=== PATIENT | female | born 1940 | race African-American/Black ===

== ENCOUNTER 2024-10-16 23:22 | Emergency (ER) | payer MEDICARE ==
[~2024-10-16] VITALS: Ht 170.2 cm; Wt 53.4 kg
[~2024-10-16 23:22] MED LIST: CHOL100018 PO
[2024-10-16 23:32] VITALS: TEMP 98
[2024-10-16 23:49] LABS: PLATELET COUNT (AUTO) 331 K/uL (150-450); RED BLOOD CELL COUNT(AUTO) 4.67 MIL/uL (4.00-5.20); RED CELL DISTRIBUTION WIDTH 13.4 % (11.5-14.5); WHITE BLOOD COUNT (AUTO) 8.0 K/uL (4.5-11.0)
[2024-10-16 23:57] LABS: CALCIUM, TOTAL 9.7 mg/dL (8.8-10.5); CREATININE 1.30 mg/dL (0.60-1.30); GLOMERULAR FILTR. RATE CALC 47 mL/min (>60); GLUCOSE,RANDOM 132 mg/dL (70-110); SODIUM SERUM 135 mmol/L (136-145); UREA NITROGEN, BLOOD 36 mg/dL (7-18)
[2024-10-17 00:06] LABS: TROPONIN I-HIGH SENSITIVITY 19 ng/L (<51)
[2024-10-17 06:01] VITALS: BP 165/95; PULSE 81; RESP 16; O2SAT 95
== END 2024-10-17 06:01 | disposition home or self-care (01) ==
LOC: EMS 23:22
DX: R10.9 Unspecified abdominal pain (principal)
CPT/HCPCS: 80048; 83690; 84484; 85025; 93005; 99283